=== PATIENT | male | born 2000 | race Caucasian/White ===

== ENCOUNTER 2019-04-28 20:54 | Emergency (ER) | payer OTHER ==
[~2019-04-28] VITALS: Ht 172.7 cm; Wt 65.8 kg
[2019-04-28 21:01] VITALS: BP_SYST 129
--- NOTE | 2019-04-28 21:05 | NUR ---
Patient to ER bed 02 for evaluation. Side rails up. Report given to Angela LYONS.
--- NOTE | 2019-04-28 21:35 | NUR ---
ER at bedside examining patient.
--- NOTE | 2019-04-28 21:58 | NUR ---
Dr. Waddell speaking with pt.s parents to update on POC.
[2019-04-28] MEDS ORDERED: MORPHINE 2 MG/ML INJ. SYRINGE IVP ONE (22:00)
[2019-04-28] MEDS ORDERED: MORPHINE 4 MG/ML INJ. SYRINGE IM ONE (22:00)
[2019-04-28] MEDS ORDERED: ONDANSETRON HCL 4 MG/2 ML VIAL IVP ONE (22:15)
[2019-04-28] MEDS ORDERED: ONDANSETRON HCL 4 MG/2 ML VIAL ONE (22:23)
--- NOTE | 2019-04-28 22:49 | NUR ---
pt ambulated with steady gait to bathroom. [facility] made aware.
[2019-04-28 23:15] VITALS: BP_SYST 118
--- NOTE | 2019-04-28 23:15 | NUR ---
Patient given written and verbal discharge instructions and verbalizes understanding. ER MD discussed with patient the results and treatment provided. Patient in stable condition. ID arm band removed. IV catheter removed intact and dressing applied, no active bleeding. Rx of C[place] given. Patient educated on pain management and to follow up with PMD. Pain Scale 0/10 Opportunity for questions provided and answered. Medication side effect fact sheet provided.
== END 2019-04-28 23:15 | disposition home or self-care (01) ==
LOC: SED 20:54
DX: S42.391A Other fracture of shaft of right humerus, initial encounter for closed fracture (principal); Y93.72 Activity, wrestling; Y93.89 Activity, other specified; Y92.89 Other specified places as the place of occurrence of the external cause; Y99.8 Other external cause status
CPT/HCPCS: 29105; 73060; 96374; 96375; 99283; J2270; J2405